=== PATIENT | male | born 1950 | race Caucasian/White ===

== ENCOUNTER 2017-01-05 08:32 | Emergency (ER) | payer BC ==
[2017-01-05] MEDS ORDERED: Tetracaine 0.5% OPTH.SOL 4 ML* 1 DROP BTL ONE (08:37)
[2017-01-05] MEDS ORDERED: Fluorescein Sodium TOPICAL* 1 MG TEST OPHTHALMIC ONE (08:37)
[2017-01-05 08:39] VITALS: BP 146/91
--- NOTE | 2017-01-05 09:06 | UC ---
Eye Complaint HPI - HPI Summary HPI Summary: Pt presents with complaint of redness and discomfort in left eye. pt states was fine when he went to bed. PT states looked at his email in the middle of the night without difficulty. Pt reports persistent clear drainage from eye. Pt states feels scratchy like something in it. Pt attempted to flush with saline- no improvement. No sick contacts. No other concerns. Pt wears glasses, no contacts. Pt's medications reviewed at this visit - History of Current Complaint Chief Complaint: UCEye Stated Complaint: FB IN EYE Time Seen by Provider: 01/05/17 08:37 Hx Obtained From: Patient Onset/Duration: Sudden Onset Timing: Constant Severity Initially: Mild Severity Currently: None Pain Scale Used: 0-10 Numeric Alleviating Factor(s): Other - scratchy - Allergies/Home Medications Allergies/Adverse Reactions: Allergies Allergy/AdvReac Type Severity Reaction Status Date / Time No Known Allergies Allergy Verified 01/05/17 08:35 PMH/Surg Hx/FS Hx/Imm Hx Previously Healthy: Yes - Surgical History Surgical History: Yes Surgery Procedure, Year, and Place: double hernia. root canal - Family History Known Family History: Positive: None - Social History Occupation: Employed Full-time Lives: With Family Alcohol Use: None Substance Use Type: None Smoking Status (MU): Never Smoked Tobacco Review of Systems Constitutional: Negative Skin: Negative Eyes: Drainage, Eye Redness ENT: Negative Respiratory: Negative Cardiovascular: Negative Gastrointestinal: Negative Genitourinary: Negative Motor: Negative Neurovascular: Negative Musculoskeletal: Negative Neurological: Negative Psychological: Negative All Other Systems Reviewed And Are Negative: Yes Physical Exam Triage Information Reviewed: Yes Completion Of Physical Exam Limited Due To: Altered Mental Status Appearance: Well-Appearing, No Pain Distress Vital Signs: Initial Vital Signs Temp 98.0 F 01/05/17 08:36 Pulse 70 01/05/17 08:36 Resp 16 01/05/17 08:36 BP 146/91 01/05/17 08:36 Pulse Ox 100 01/05/17 08:36 Vital Signs Reviewed: Yes Eyes: Positive: Conjunctiva Inflamed, Discharge - clear, Other: - FABIOLA, EOM intact and full No photophobia +fluorescene uptake 8 o'clock corneal scratch ENT Exam: Normal ENT: Positive: Hearing grossly normal, Pharynx normal Dental Exam: Normal Neck exam: Normal Neck: Positive: Supple, Nontender, No Lymphadenopathy Respiratory Exam: Normal Respiratory: Positive: Chest non-tender, Lungs clear, Normal breath sounds, No respiratory distress Cardiovascular Exam: Normal Cardiovascular: Positive: RRR, No Murmur, Other: - no temporal artery pain Abdominal Exam: Normal Musculoskeletal Exam: Normal Musculoskeletal: Positive: Strength Intact Neurological Exam: Normal Neurological: Positive: Alert Psychological Exam: Normal Skin Exam: Normal Skin: Positive: Other Eye Complaint Course/Dx - Course Course Of Treatment: Pt's BP noted to be elevated - recommend f/u with PCP. Pt with left eye injected, clear tears, fb sensation. On exam + corneal abraison. Rx: acular, polytrim. ophth f/u prn. return precautions discussed - Differential Dx/Diagnosis Provider Diagnoses: corneal abraison Discharge - Discharge Plan Condition: Stable Disposition: HOME Prescriptions: Ketorolac 0.5% OPHTH (NF) 1 drop LEFT EYE Q8HR PRN #1 btl PRN Reason: pain Polymyx/Trimethoprim OPTH* [Polytrim OPHTH*] 1 drop LEFT EYE Q8H #1 btl Patient Education Materials: Corneal Abrasion (ED) Referrals: José Miguel Colon MD [Medical Doctor] - Kimmie Torrez MD [Medical Doctor] - Additional Instructions: - Apply eye antibiotic drops every 8 hours as prescribed for 5 days - Okay to use ketorolac eye drops every 8 hours for pain - wear sunglasses for light sensitivity - Okay to take Tylenol every 6 hours as needed for pain - Try not to rub your eye - Call Dr. Colon's office to schedule a follow-up appointment. Contact Dr. Colon , return here or go to the emergency department with questions or concerns
== END 2017-01-05 09:24 | disposition home or self-care (01) ==
LOC: UCEAST 08:32
DX: S05.02XA Injury of conjunctiva and corneal abrasion without foreign body, left eye, initial encounter (principal); X58.XXXA Exposure to other specified factors, initial encounter
CPT/HCPCS: 99212; A9270-GY; G0463